=== PATIENT | male | born 2000 | race Caucasian/White ===

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

== ENCOUNTER 2019-02-17 22:27 | Emergency (ER) | payer MEDICAID, OTHER ==
[~2019-02-17] VITALS: Wt 90.0 kg
[~2019-02-17 22:27] MED LIST changes: +AZIT250T PO; -AZIT250T94 PO; +CETI10CA PO; +FAMO-96 PO; +GUAI120S25 PO; +IBUP-1542 PO; +ONDA4TAB14 PO; +OSEL75CA23 PO
[2019-02-17 22:34] VITALS: BP 150/81; PULSE 129; RESP 18
--- NOTE | 2019-02-18 02:01 | ERD ---
ER Documentation Chief Complaint Chief Complaint COUGH AND INTERMITTENT FEVERS FOR THE PAST FEW DAYS. SORE THROAT HPI 18-year-old male with no reported past medical surgical history who presents with 4-day complaint of cough, nasal congestion, sore throat,subjective fevers and nausea. Noticed cough on Thursday and subsequently developed tactile fever on Thursday. Cough has been productive of yellow sputum. Reports intermittent nausea but no vomiting, diarrhea, abdominal pain, urinary symptoms. He does suffer allergies which she takes Zyrtec for. Said intermittent frontal headache but at this time headache free. He otherwise reports good health. Has allergies to penicillin and reports all vaccinations up-to-date. At time of evaluation patient is nontoxic-appearing answering all questions appropriately she has vital signs notable for absence of fever. ROS All systems reviewed and are negative except as per history of present illness. Medications Home Meds Active Scripts Azithromycin* (Zithromax*) 250 Mg Tablet, 250 MG PO .ZPACK DIRECTED, #6 TAB TAKE 500 MG (2 TABS) THE FIRST DAY THEN 250 MG (1 TAB) DAYS 2-5 Prov:TERESITA GREGORIO PA-C 02/18/19 Ondansetron (Ondansetron Odt) 4 Mg Tab.rapdis, 4 MG PO Q6H PRN for NAUSEA AND/OR VOMITING, #10 TAB Prov:DANIA CACERES PA-C 06/10/18 Famotidine* (Pepcid*) 20 Mg Tablet, 20 MG PO BID for 30 Days, TAB Prov:DANIA CACERES PA-C 06/10/18 Cetirizine Hcl* (Zyrtec*) 10 Mg Capsule, 10 MG PO DAILY, #30 TAB.CHEW Prov:MANJULA BERMUDEZ NP 11/17/16 Ixeocaeveti-G-Lmuiacxsqp Hb* (Guaifenesin* DM Syrup) 120 Ml Syrup, 10 ML PO Q4H PRN for COUGH, #120 ML Prov:MANJULA BERMUDEZ NP 11/17/16 Ibuprofen* (Motrin*) 600 Mg Tab, 600 MG PO Q6H PRN for PAIN AND OR ELEVATED TEMP, #30 TAB Prov:MANJULA BERMUDEZ NP 11/17/16 Oseltamivir Phosphate* (Tamiflu*) 75 Mg Capsule, 75 MG PO BID for 5 Days, CAP Prov:MANJULA BERMUDEZ NP 11/17/16 Ondansetron Hcl* (Zofran* ODT) 8 mg -ODT Tab.disper, 8 MG PO Q6 PRN for NAUSEA AND/OR VOMITING, #6 TAB Prov:MARTHA PARK MD 03/07/16 Azithromycin* (Zithromax*) 250 Mg Tablet, 250 MG PO BID for 5 Days, TAB Prov:CABRERA ROSARIO DO 02/07/16 Fluticasone Propionate (Flonase Allergy Relief) 9.9 Ml [place].susp, 9.9 ML NS DAILY, #1 Prov:ROBBIE YEUNG PA-C 09/20/15 Prednisone* (Prednisone*) 20 Mg Tab, 40 MG PO DAILY for 4 Days, TAB Prov:ROBBIE YEUNG PA-C 09/20/15 Albuterol Sulfate* (Albuterol Sulfate* HFA) 8.5 Gm Hfa.aer.ad, 1-2 PUFF INH Q4 PRN for SHORTNESS OF BREATH, #1 EA Prov:ROBBIE YEUNG PA-C 09/20/15 Allergies Allergies: Coded Allergies: Penicillins (Verified Allergy, Unknown, RASH, 06/10/18) PMhx/Soc Medical and Surgical Hx: pt denies Medical Hx, pt denies Surgical Hx History of Surgery: No Anesthesia Reaction: No Hx Neurological Disorder: No Hx Respiratory Disorders: Yes (asthma) Hx Cardiac Disorders: No Hx Psychiatric Problems: No Hx Miscellaneous Medical Probl: No Hx Alcohol Use: No Hx Substance Use: No Hx Tobacco Use: No Smoking Status: Never smoker Physical Exam Vitals Vital Signs Date Temp Pulse Resp B/P (MAP) Pulse Ox O2 O2 Flow FiO2 Time Delivery Rate 02/17/19 99.0 129 18 150/81 99 22:34 (104) Physical Exam Const: No acute distress, obese Head: Atraumatic Eyes: Normal Conjunctiva ENT: Normal External Ears, inner ear unremarkable, no swelling, erythema, exudates, Nose and Mouth unremarkable, throat tonsillar swelling, erythema, no exudates Neck: Full range of motion. No meningismus. Resp: Clear to auscultation bilaterally Cardio: Regular rate and rhythm, no murmurs Abd: Soft, non tender, non distended. Normal bowel sounds Skin: No petechiae or rashes Back: No midline or flank tenderness Ext: No cyanosis, or edema Neur: Awake and alert Psych: Normal Mood and Affect Procedures/MDM 18 yo patient with clinical presentation is very consistent with an acute viral syndrome. No evidence of pneumonia. He likely has a component of pharygitis based on exam. Will elect to treat with Zpak. The patient is well-appearing without respiratory distress. Normal oxygen saturation. X-ray imaging not indicated. No indication for Tamiflu. The patient does not exhibit any clinical signs or symptoms concerning for serious bacterial infection or systemic illness. Based on history and clinical exam findings the patient does not appear to have evidence of pneumonia, strep pharyngitis, urinary tract infection, bacteremia, sepsis, or meningitis. For these reasons I do not believe it is necessary to obtain laboratory testing or diagnostic imaging. I believe it would be appropriate for symptom control, and close outpatient primary care follow-up. We discussed follow up with the patient's primary care doctor within 24 to 48 hours as needed. We also discussed return to the emergency room for worsening symptoms or worsening condition. Departure Diagnosis: Primary Impression: Pharyngitis Additional Impression: Sore throat Condition: Stable TERESITA GREGORIO PA-C Feb 18, 2019 02:01
[2019-02-18] MEDS ORDERED: AZIT250T PO (02:07)
== END 2019-02-18 02:31 | disposition home or self-care (01) ==
LOC: FTE 22:27
DX: J02.9 Acute pharyngitis, unspecified (principal); J45.909 Unspecified asthma, uncomplicated
CPT/HCPCS: 99283

== ENCOUNTER 2019-05-15 18:26 | Emergency (ER) | payer OTHER ==
[~2019-05-15] VITALS: Ht 154.9 cm; Wt 112.3 kg
[2019-05-15 18:29] VITALS: PULSE 108; Ht 154.9 cm; Wt 112.3 kg
[2019-05-15] MEDS ORDERED: IBUPROFEN 800 MG TAB PO ONE (19:00)
[2019-05-15] MEDS ORDERED: IBUP800T48 PO (20:26)
--- NOTE | 2019-05-15 20:27 | ERD ---
ER Documentation Chief Complaint Chief Complaint Pt reports he twisted his ankle at the beach today HPI 18-year-old male presents to ED complaining of left ankle pain x1 hour ago. He states that he was at the beach walking on concrete and he "stepped funny" and his foot "went down funny." He states that he has been suffering from left foot pain since the incident. He reports pain is 10 out of 10 intensity, constant pain that is throbbing in character. He states that the pain is located at his medial ankle. He denies radiation of his pain. he denies any previous injury to the foot or ankle. He has not taken any medications for his pain. Patient denies past medical history Patient states that he does not take any medications on a daily basis ROS All systems reviewed and are negative except as per history of present illness. Medications Home Meds Active Scripts Ibuprofen* (Motrin*) 800 Mg Tab, 800 MG PO Q6H PRN for PAIN AND OR ELEVATED TEMP, #30 TAB Prov:SAM DAVIS PA-C 05/15/19 Azithromycin* (Zithromax*) 250 Mg Tablet, 250 MG PO .ZPACK DIRECTED, #6 TAB TAKE 500 MG (2 TABS) THE FIRST DAY THEN 250 MG (1 TAB) DAYS 2-5 Prov:TERESITA GREGORIO PA-C 02/18/19 Ondansetron (Ondansetron Odt) 4 Mg Tab.rapdis, 4 MG PO Q6H PRN for NAUSEA AND/OR VOMITING, #10 TAB Prov:DANIA CACERES PA-C 06/10/18 Famotidine* (Pepcid*) 20 Mg Tablet, 20 MG PO BID for 30 Days, TAB Prov:DANIA CACERES PA-C 06/10/18 Cetirizine Hcl* (Zyrtec*) 10 Mg Capsule, 10 MG PO DAILY, #30 TAB.CHEW Prov:MANJULA BERMUDEZ NP 11/17/16 Pnvdtwbewkf-Y-Idcioupxoa Hb* (Guaifenesin* DM Syrup) 120 Ml Syrup, 10 ML PO Q4H PRN for COUGH, #120 ML Prov:MANJULA BERMUDEZ NP 11/17/16 Ibuprofen* (Motrin*) 600 Mg Tab, 600 MG PO Q6H PRN for PAIN AND OR ELEVATED TEMP, #30 TAB Prov:MANJULA BERMUDEZ NP 11/17/16 Oseltamivir Phosphate* (Tamiflu*) 75 Mg Capsule, 75 MG PO BID for 5 Days, CAP Prov:MANJULA BERMUDEZ NP 11/17/16 Ondansetron Hcl* (Zofran* ODT) 8 mg -ODT Tab.disper, 8 MG PO Q6 PRN for NAUSEA AND/OR VOMITING, #6 TAB Prov:MARTHA PARK MD 03/07/16 Azithromycin* (Zithromax*) 250 Mg Tablet, 250 MG PO BID for 5 Days, TAB Prov:CABRERA ROSARIO DO 02/07/16 Fluticasone Propionate (Flonase Allergy Relief) 9.9 Ml [place].susp, 9.9 ML NS DAILY, #1 Prov:ROBBIE YEUNG PA-C 09/20/15 Prednisone* (Prednisone*) 20 Mg Tab, 40 MG PO DAILY for 4 Days, TAB Prov:ROBBIE YEUNG PA-C 09/20/15 Albuterol Sulfate* (Albuterol Sulfate* HFA) 8.5 Gm Hfa.aer.ad, 1-2 PUFF INH Q4 PRN for SHORTNESS OF BREATH, #1 EA Prov:ROBBIE YEUNG PA-C 09/20/15 Allergies Allergies: Coded Allergies: Penicillins (Verified Allergy, Unknown, RASH, 06/10/18) PMhx/Soc History of Surgery: No Anesthesia Reaction: No Hx Neurological Disorder: No Hx Respiratory Disorders: Yes (Asthma) Hx Cardiac Disorders: No Hx Psychiatric Problems: No Hx Miscellaneous Medical Probl: No Hx Alcohol Use: No Hx Substance Use: No Hx Tobacco Use: No Smoking Status: Never smoker FmHx Family History: No diabetes Physical Exam Vitals Vital Signs Date Temp Pulse Resp B/P (MAP) Pulse Ox O2 O2 Flow FiO2 Time Delivery Rate 05/15/19 98.4 18 142/90 97 20:49 (107) 05/15/19 98.5 108 24 147/89 98 18:29 (108) Physical Exam Const: No acute distress Head: Atraumatic Eyes: Normal Conjunctiva ENT: Normal External Ears, Nose and Mouth. Neck: Full range of motion. No meningismus. Resp: Clear to auscultation bilaterally Cardio: Regular rate and rhythm, no murmurs Abd: Soft, non tender, non distended. Normal bowel sounds Skin: No petechiae or rashes Back: No midline or flank tenderness Ext: Left foot/ankle: Moderately swollen left ankle, good pulses 2+, good sensation, fair range of motion limited secondary to pain. Significant t enderness to the medial aspect of his lower ankle Neur: Awake and alert Psych: Normal Mood and Affect Results 24 hrs Current Medications Medications Dose Sig/Derek Start Time Status Last (Trade) Ordered Route PRN Stop Time Admin Dose Reason Admin Ibuprofen 800 mg ONCE ONCE 05/15/19 DC 05/15/19 (Motrin) PO 19:00 05/15/19 18:53 19:01 Procedures/MDM ED COURSE: The patient was stable throughout ED course. I kept the patient informed of laboratory and diagnostic imaging results throughout the ED course. DIAGNOSTIC IMAGING: Read by radiologist. PROCEDURE: XR Ankle. CLINICAL INDICATION: Left ankle pain. TECHNIQUE: Three views of the left ankle. COMPARISON: None available. FINDINGS: No fracture or dislocation is identified. The ankle mortise appears intact in this nonstressed study. There is a small plantar calcaneal enthesophyte. There is no significant soft tissue swelling. IMPRESSION: No fracture or dislocation of the left ankle. RPTAT: HTAR .Maninder Ramirez MD, MD Date Time Electronically viewed and signed by .Maninder Ramirez MD, MD on 05/15/2019 20:19 PROCEDURE: XR Foot. CLINICAL INDICATION: Pain. TECHNIQUE: Three views of the left foot. COMPARISON: None available. FINDINGS: No fracture or dislocation is identified. There is a small plantar calcaneal enthesophyte. There is no significant soft tissue swelling. IMPRESSION: No fracture or dislocation of the left foot. RPTAT: HTAR .Maninder Ramirez MD, MD Date Time Electronically viewed and signed by .Maninder Ramirez MD, on 05/15/2019 20:20 PROCEDURES: SPLINT APPLICATION: The patient was verbally consented at bedside prior to splint application. Patient was explained the risks, benefits and alternatives to this procedure. The patient was neurovascularly intact prior to and status post application of the splint. The patient tolerated the procedure well with no complications. Splint type: posterior tibial Extremity: LLE Indication: Ankle sprain MEDICATIONS GIVEN: motrin Patient tolerated medication well with no adverse reactions. Patient reported improvement in pain. MEDICAL DECISION MAKING: Patient is a 18-year-old male complaining of left ankle pain x1 hour. On ph ysical exam patient had good 2+ pulses, good sensation, fair right range of motion though is limited secondary to pain. Patient showed tenderness to the medial lower ankle. X-ray imaging was done of the left foot and ankle which was unremarkable. Patient was placed in the splint and discharged with Motrin. Patient was told to follow-up with primary care provider and Ortho in the next 1 to 2 days. H&P with other data not c/w emergent process (eg. DVT, AAO, compartment syndrome, nec fasc). No signs of ischemia, neurovascular compromise, compartment syndrome, or septic joint, avascular necrosis, or osteomyelitis. Vital signs were reviewed. Patient is afebrile. Patient was not hypoxic. Patient was hemodynamically stable. Patient was told to follow up with primary care for further care and management. PRESCRIPTION: motrin DISCHARGE: At this time, patient is stable for discharge and outpatient management. I have instructed the patient to follow-up with his/her primary care physician in 1-2 days. I have discussed with the patient the possibility of needing to see a specialist for further workup and imaging studies if symptoms persist. I have instructed the patient to promptly return to the ER for any new or worsening symptoms including increased pain, fever, nausea, vomiting, weakness or LOC. The patient expressed understanding of and agreement with this plan. All questions were answered. Home care instructions were provided. Disclaimer: Inadvertent spelling and grammatical errors are likely due to EHR/dictation software use and do not reflect on the overall quality of patient care. Also, please note that the electronic time recorded on this note does not necessarily reflect the actual time of the patient encounter. Departure Diagnosis: Primary Impression: Ankle sprain Encounter type: initial encounter Involved ligament of ankle: unspecified ligament Laterality: left Qualified Codes: S93.402A - Sprain of unspecified ligament of left ankle, initial encounter Condition: Fair Patient Instructions: Treating Ankle Sprains, Self-Care for Strains and Sprains Referrals: [facility] YOU HAVE RECEIVED A MEDICAL SCREENING EXAM AND THE RESULTS INDICATE THAT YOU DO NOT HAVE A CONDITION THAT REQUIRES URGENT TREATMENT IN THE EMERGENCY DEPARTMENT. FURTHER EVALUATION AND TREATMENT OF YOUR CONDITION CAN WAIT UNTIL YOU ARE SEEN IN YOUR DOCTORS OFFICE WITHIN THE NEXT 1-2 DAYS. IT IS YOUR RESPONSIBILITY TO MAKE AN APPOINTMENT FOR FOLOW-UP CARE. IF YOU HAVE A PRIMARY DOCTOR --you should call your primary doctor and schedule an appointment IF YOU DO NOT HAVE A PRIMARY DOCTOR YOU CAN CALL OUR PHYSICIAN REFERRAL HOTLINE AT IF YOU CAN NOT AFFORD TO SEE A PHYSICIAN YOU CAN CHOSE FROM THE FOLLOWING [facility] [address] [facility]. [facility] [address] [facility]. [facility] [address] [facility] [address] [facility] [address] [facility] [address] [facility]. [facility] YOU HAVE RECEIVED A MEDICAL SCREENING EXAM AND THE RESULTS INDICATE THAT YOU DO NOT HAVE A CONDITION THAT REQUIRES URGENT TREATMENT IN THE EMERGENCY DEPARTMENT. FURTHER EVALUATION AND TREATMENT OF YOUR CONDITION CAN WAIT UNTIL YOU ARE SEEN IN YOUR DOCTORS OFFICE WITHIN THE NEXT 1-2 DAYS. IT IS YOUR RESPONSIBILITY TO MAKE AN APPOINTMENT FOR FOLOW-UP CARE. IF YOU HAVE A PRIMARY DOCTOR --you should call your primary doctor and schedule and appointment IF YOU DO NOT HAVE A PRIMARY DOCTOR YOU CAN CALL OUR PHYSICIAN REFERRAL HOTLINE AT . IF YOU CAN NOT AFFORD TO SEE A PHYSICIAN YOU CAN CHOSE FROM THE FOLLOWING [facility] INSTITUTIONS: [facility] [address] [place] [address] [facility] [address] [place] [address] [address] [facility] Care 7 a.m.- 11 p.m. Every Day of the Week NO APPOINTMENT OR AUTHORIZATION NEEDED SO [facility] Hours: Mon-Fri 9:00 AM - 5:00 PM Additional Instructions: Call your primary care doctor TOMORROW for an appointment during the next 1-2 days.See the doctor sooner or return here if your condition worsens before your appointment time. SAM DAVIS PA-C May 15, 2019 20:27
[2019-05-15 20:49] VITALS: BP 142/90; RESP 18
== END 2019-05-15 20:49 | disposition home or self-care (01) ==
LOC: FTE 18:26
DX: S93.402A Sprain of unspecified ligament of left ankle, initial encounter (principal); J45.909 Unspecified asthma, uncomplicated; X50.1XXA Overexertion from prolonged static or awkward postures, initial encounter; Y92.832 Beach as the place of occurrence of the external cause
CPT/HCPCS: 29515; 73610; 73630; Z7502; Z7610